=== PATIENT | female | born 1960 | race Caucasian/White ===

== ENCOUNTER → 2018-01-29 | Outpatient (CLI) | payer OTHER | LOC: M.RAD 11:28 | DX: S92.911A Unspecified fracture of right toe(s), initial encounter for closed fracture (principal); X58.XXXA Exposure to other specified factors, initial encounter; Y93.89 Activity, other specified; Y92.89 Other specified places as the place of occurrence of the external cause; Y99.8 Other external cause status ==

== ENCOUNTER → 2019-06-03 | Outpatient (CLI) | payer OTHER ==
[~2019-06-03] MED LIST: ASPIR 8181 MG PO; EFFIENT10 MG PO; IBUPROFEN 400400 M2 PO; LEVAQUIN 500 M500 M2 PO; LIPITOR80 MG PO; LOPRESSOR100 M1 PO; MACROBID 100 M100 M2 PO; PEPCID20 MG PO; TYLENOL325 MG PO; ZETIA10 MG PO
== END ==
LOC: M.MRI 05-27 11:30
DX: S83.241A Other tear of medial meniscus, current injury, right knee, initial encounter (principal); M71.21 Synovial cyst of popliteal space [Baker], right knee; X58.XXXA Exposure to other specified factors, initial encounter; Y93.89 Activity, other specified; Y92.89 Other specified places as the place of occurrence of the external cause; Y99.8 Other external cause status

== ENCOUNTER → 2020-09-15 | Outpatient (CLI) | payer OTHER | LOC: M.RAD 13:45 | PROVIDERS: ATTEND Family Medicine | DX: M43.22 Fusion of spine, cervical region (principal); M25.78 Osteophyte, vertebrae ==

== ENCOUNTER → 2021-07-12 | Outpatient (CLI) | payer OTHER ==
[2021-07-12 09:57] LABS: HEMATOCRIT 43.8 % (37.0-47.0); HEMOGLOBIN 14.4 gm/dL (12.0-15.0); MCH 29.7 pg (26.0-34.0); MCHC 32.9 g/dL (28.0-37.0); MCV 90.3 fL (80.0-100.0); MPV 7.7 fl. (7.2-11.1); RBC 4.85 mil/uL (4.20-5.00); RDW-CV 13.6 % (10.5-14.5); WBC 7.1 thou/uL (4.0-11.0)
[2021-07-12 10:09] LABS: ALBUMIN 3.8 g/dL (3.4-5.0); ALKALINE PHOSPHATASE 139 U/L (46-116); ANION GAP 7 mmol/L (7-16); BUN 12 mg/dL (7-18); CALCIUM 8.7 mg/dL (8.5-10.1); CHLORIDE 107 mmol/L (98-107); CHOLESTEROL 101 mg/dL (<200); CO2 30 mmol/L (21-32); CREATININE 0.9 mg/dL (0.6-1.3); GLUCOSE 101 mg/dL (70-99); HDL CHOLESTEROL 45 mg/dL (>40); LDL CHOLESTEROL 29 mg/dL (<100); POTASSIUM 4.4 mmol/L (3.5-5.1); SGOT 29 U/L (15-37); SGPT 39 U/L (30-65); SODIUM 144 mmol/L (136-145); TC:HDL 2.2 Ratio (Not establshd); TOTAL BILIRUBIN 0.5 mg/dL (<0.1-1.0); TRIGLYCERIDE 136 mg/dL (<150); VLDL 27 mg/dL (<40)
[2021-07-12 10:11] LABS: SERUM ASSESSMENT Clear
== END ==
LOC: M.RAD 07-05 15:25 → M.LAB 09:08 → M.RAD 09:08
PROVIDERS: ATTEND Nurse Practitioner Family
DX: M85.80 Other specified disorders of bone density and structure, unspecified site (principal); M50.30 Other cervical disc degeneration, unspecified cervical region; E78.2 Mixed hyperlipidemia; R73.09 Other abnormal glucose; I10 Essential (primary) hypertension; I25.10 Atherosclerotic heart disease of native coronary artery without angina pectoris; J44.1 Chronic obstructive pulmonary disease with (acute) exacerbation; F33.1 Major depressive disorder, recurrent, moderate; Z12.39 Encounter for other screening for malignant neoplasm of breast; Z72.0 Tobacco use; Z12.31 Encounter for screening mammogram for malignant neoplasm of breast; Z00.01 Encounter for general adult medical examination with abnormal findings